=== PATIENT | male | born 1960 | race Caucasian/White ===

== ENCOUNTER 2018-01-29 12:57 | Inpatient (IN) ==
[2018-01-29 18:04] LABS: Amphetamine Screen,Urine Neg (Neg); Barbiturate Screen,Urine Neg (Neg); Cannabinoid Screen,Urine Neg (Neg); Cocaine Screen,Urine Neg (Neg)
[2018-01-29 18:13] LABS: Opiate Screen,Urine Neg (Neg)
[2018-01-29 18:15] LABS: Albumin 3.9 g/dL (3.4-5.0); Anion Gap 9 meq/L (5-15); Aspartate Aminotransferase 15 U/L (15-37); Blood Urea Nitrogen 13 mg/dL (7-18); Calcium 8.9 mg/dL (8.5-10.1); Carbon Dioxide 28.2 meq/L (21.0-32.0); Chloride 104 meq/L (98-107); Glomerular Filtration Rate 80 mL/min (>89); Glucose,Random 91 mg/dL (74-106); Potassium 3.9 meq/L (3.5-5.1); Sodium 141 meq/L (136-145)
[2018-01-29 18:16] LABS: Alanine Aminotransferase 22 U/L (12-78)
[2018-01-29 18:18] LABS: Baso # (Auto) 0.1 th/mm3 (0.0-0.2); Baso % (Auto) 0.6 % (0.0-2.0); Eos # (Auto) 0.1 th/mm3 (0.0-0.4); Eos % (Auto) 1.1 % (0.0-4.0); Hematocrit 41.5 % (39.0-51.0); Hemoglobin 14.5 gm/dL (13.0-17.0); Lymph % (Auto) 29.2 % (9.0-44.0); Mean Corpuscular HGB Conc 34.9 % (32.0-36.0); Mean Corpuscular Hemoglobin 29.9 pg (27.0-34.0); Mean Corpuscular Volume 85.7 fL (80.0-100.0); Mean Platelet Volume 8.5 fL (7.0-11.0); Mono # (Auto) 0.7 th/mm3 (0.0-0.9); Mono % (Auto) 6.8 % (0.0-8.0); Neut # (Auto) 6.4 th/mm3 (1.8-7.7); Neut % (Auto) 62.3 % (16.0-70.0); Platelet Count 301 th/mm3 (150-450); Red Blood Count 4.84 mil/mm3 (4.50-5.90); Red Cell Distribution Width 14.4 % (11.6-17.2); White Blood Count 10.2 th/mm3 (4.0-11.0)
--- NOTE | 2018-01-29 18:18 | ED ---
HPI General Chief Complaint: Psychiatric Symptoms Stated Complaint: Psych Screen Time Seen by Provider: 01/29/18 16:51 Source: patient Mode of arrival: ambulatory Limitations: other (possibly autistic) History of Present Illness HPI Narrative: Patient is a 57-year-old male presenting [facility] for [facility] evaluation. Patient states that his "mind is mixed up". He attributes this to withdrawing from Klonopin. He states that he has not had any for 3 weeks. He reports that he has trouble sleeping, this is also been ongoing for the last 3 weeks. He states that he has not used cocaine for the same amount of time but continues to have insomnia. He denies any suicidal homicidal ideations. He denies any hallucinations. Apparently patient's physician is attempting to wean him from the Klonopin. Patient has no other complaints at this time. Onset (ago): week(s) Duration: constant Related Data Allergies Allergy/AdvReac Type Severity Reaction Status Date / Time No Known Allergies Allergy Unverified 01/29/18 16:57 Review of Systems ROS: all other systems reviewed are negative PMFSH History History Provided By: Patient Medical History Medical History Autistic behavior (Chronic) Social History Social History Recent Travel in [facility] within the Last 8 Weeks: No Recent Out of Country Travel within the Last 8 Weeks: No Exam Narrative Exam Narrative: GENERAL: Overweight, well-developed, alert male. Presenting in no acute distress. SKIN: Focused skin assessment warm/dry. HEAD: Atraumatic. Normocephalic. EYES: Pupils equal and round. No scleral icterus. No injection or drainage. ENT: No nasal bleeding or discharge. Mucous membranes pink and moist. NECK: Trachea midline. No JVD. CARDIOVASCULAR: Regular rate and rhythm. No murmur appreciated. RESPIRATORY: No accessory muscle use. Clear to auscultation. Breath sounds equal bilaterally. GASTROINTESTINAL: Abdomen soft, non-tender, nondistended. Hepatic and splenic margins not palpable. MUSCULOSKELETAL: No obvious deformities. No clubbing. No cyanosis. No edema. NEUROLOGICAL: Awake and alert. No obvious cranial nerve deficits. Motor grossly within normal limits. Normal speech. PSYCHIATRIC: Appropriate mood and affect; insight and judgment normal. Course Initial Documented Vital Signs Temperature 98.6 F 01/29/18 13:04 Pulse Rate 85 01/29/18 13:04 Respiratory Rate 22 01/29/18 13:04 Blood Pressure 146/88 H 01/29/18 13:04 Pulse Oximetry 98 01/29/18 13:04 Last Documented Vital Signs Temperature 98.6 F 01/29/18 13:04 Pulse Rate 85 01/29/18 13:04 Respiratory Rate 22 01/29/18 13:04 Blood Pressure 146/88 H 01/29/18 13:04 Pulse Oximetry 98 01/29/18 13:04 Medical Decision Making MDM Narrative Medical decision making narrative: Patient is a well-appearing 57-year-old male presenting sent voluntarily for psychiatric evaluation. Vital signs are stable. Mental health screening discussed with the patient. Psychiatric screen ordered. It is unlikely patient's withdrawing from Klonopin, he has no physical symptoms other than insomnia. Labs reviewed, no acute findings identified. Patient is medically cleared for psychiatric evaluation at this time. Medical Screen Exam Complete: Yes Emergency Medical Condition: Yes Medical Records Medical records reviewed: Yes I reviewed the patient's medical records. Lab Data Lab results reviewed: Yes I reviewed the patient's lab results. Result diagrams: 01/29/18 17:20 01/29/18 17:20 Lab Results 01/29/18 01/29/18 01/29/18 Range/Units 16:30 17:20 17:20 WBC 10.2 (4.0-11.0) th/mm3 RBC 4.84 (4.50-5.90) mil/mm3 Hgb 14.5 (13.0-17.0) gm/dL Hct 41.5 (39.0-51.0) % MCV 85.7 (80.0-100.0) fL MCH 29.9 (27.0-34.0) pg MCHC 34.9 (32.0-36.0) % RDW 14.4 (11.6-17.2) % Plt Count 301 (150-450) th/mm3 MPV 8.5 (7.0-11.0) fL Neut % (Auto) 62.3 (16.0-70.0) % Lymph % (Auto) 29.2 (9.0-44.0) % [place] % (Auto) 6.8 (0.0-8.0) % Eos % (Auto) 1.1 (0.0-4.0) % Baso % (Auto) 0.6 (0.0-2.0) % Neut # (Auto) 6.4 (1.8-7.7) th/mm3 Lymph # (Auto) 3.0 (1.0-4.8) th/mm3 [place] # (Auto) 0.7 (0.0-0.9) th/mm3 Eos # (Auto) 0.1 (0.0-0.4) th/mm3 Baso # (Auto) 0.1 (0.0-0.2) th/mm3 WBC Differential . Differential Comment Auto diff final Sodium 141 (136-145) meq/L Potassium 3.9 (3.5-5.1) meq/L Chloride 104 (98-107) meq/L Carbon Dioxide 28.2 (21.0-32.0) meq/L Anion Gap 9 (5-15) meq/L BUN 13 (7-18) mg/dL Creatinine 0.96 (0.60-1.30) mg/dL Estimated GFR 80 L (>89) mL/min Random Glucose 91 (74-106) mg/dL Calcium 8.9 (8.5-10.1) mg/dL Total Bilirubin 0.4 (0.2-1.0) mg/dL AST 15 (15-37) U/L ALT 22 (12-78) U/L Alkaline Phosphatase 77 (45-117) U/L Total Protein 7.1 (6.4-8.2) g/dL Albumin 3.9 (3.4-5.0) g/dL TSH 2.890 (0.358-3.740) uIU/mL Urine Opiates Screen Neg (Neg) Ur Barbiturates Screen Neg (Neg) Ur Amphetamines Screen Neg (Neg) U Benzodiazepines Scrn Neg (Neg) Urine Cocaine Screen Neg (Neg) U Cannabinoids Screen Neg (Neg) Discharge Plan Discharge Disposition Patient Disposition: 30 Still Patient Discharge Condition Condition: Stable Discharge Details Diagnosis: Medical clearance for psychiatric admission Physicians Team ED Provider: Cristy Hill ED Midlevel Provider: Penelope Villeda Primary Care Provider: UNKNOWN, Discharge Interventions Interventions: Vital Signs Last Done: 01/29/18 13:04 Status ED Status: Medically Cleared
[2018-01-29 18:26] LABS: Alkaline Phosphatase 77 U/L (45-117); Total Protein 7.1 g/dL (6.4-8.2)
[2018-01-30] MEDS ORDERED: Aluminum/Magnesium/Simethacone Susp 30 ML UDC PO PRN (10:27)
[2018-01-30] MEDS ORDERED: Bisacodyl 10 MG Supp RECTAL PRN (10:27)
[2018-01-30] MEDS: amLODIPine 5 MG Tablet PO SCH (10:57)
--- NOTE | 2018-01-30 11:01 | ED ---
HPI - Psych - General Source: patient Mode of arrival: ambulatory Limitations: other (Cognitive delay) - History of Present Illness MD complaint: other (Insomnia and increased anxiety) Onset (ago): week(s) Duration: constant History of same: Yes Relieving factors: medication (Klonopin) Exacerbating factors: other (Being weaned off of the Klonopin) Context: not taking psychiatric medications Associated psychiatric symptoms: other (Increased anxiety) Associated symptoms: insomnia Treatments prior to arrival: none - General Chief Complaint: Psychiatric Symptoms Stated Complaint: Psych Screen Time Seen by Provider: 01/30/18 10:15 - History of Present Illness HPI Narrative: This is a 57-year-old single, male who presents to this facility voluntarily self reporting no sleep for several nights now. He is not previously known to the psychiatric department at this facility. Reviewed electronic medical record, labs, discussed case with staff. Patient's toxicology screen is negative. He is evaluated and J104. He is found awake, alert, and oriented 4. He is dressed in [facility] and neatly groomed. He denies feeling suicidal or homicidal as well as experiencing auditory or visual hallucinations. His speech while clear, logical, and organized is somewhat pressured and rapid. I can elicit no delusional material. There is no indication of internal stimulation or thought blocking. There is no indication of psychosis. He does seem somewhat hypomanic at this point. His mood and affect are congruently anxious. In interacting with this patient, he appears to have some cognitive deficit. He states that he is withdrawing due to having his Klonopin decreased by his psychiatrist. Reports that he started using cocaine several months ago but has been off of it for approximately a month now. He states, "I have an addictive personality". He reports that he has had problems with alcohol in the past but no longer drinks. States that he feels really "edgy". He claims that he has not slept for "weeks". He reports that he has a problem with anxiety. He was a cutter but has not cut for the last 7 years. His mother reportedly set him up in a trailer where he lives by himself. He receives an SSI check. States that he completed the ninth grade. He denies owning any firearms. He denies smoking cigarettes stating that he quit many years ago. He denies any previous suicide attempts. He denies any knowledge of familial suicide or mental illness. (Marcella Ashton) - Related Data Home Medications Medication Instructions Recorded Confirmed amlodipine 5 mg PO DAILY 01/29/18 01/29/18 losartan 50 mg PO DAILY 01/29/18 01/29/18 [id number] Label Instructions .ROUTE 01/29/18 01/29/18 [Vayarin] .COMPLEX Allergies Allergy/AdvReac Type Severity Reaction Status Date / Time No Known Allergies Allergy Unverified 01/29/18 16:57 Review of Systems All other systems reviewed negative except as [facility] - History History Provided By: Patient, Family Member - Medical History Medical History: Medical History (Last Reviewed 01/30/18 @ 10:54 by TIM Nick) Hypertension Autistic behavior - Tobacco History Second Hand Smoke Exposure: No Smoking Status: Former smoker - Alcohol History How Often Do You Have a Drink Containing Alcohol: Never - Substance Use History Substance History: Past History - Substance Use Type Crack/Cocaine Status: Early Remission Route Used: Inhalation Frequency: "occasional" Last Used: 3 weeks ago Reason for Use: Feels Good Amphetamines Status: Sustained Remission Last Used: 2016 Reason for Use: Get High Comment: Treated at rehab in [place] starting in 2016 - Travel History Recent Travel in the [facility] Within the Last 8 Weeks: No Recent Travel Out of the Country Within the Last 8 Weeks: No - Immunization History Tetanus Immunization: Unsure Psychiatric History - Psychiatric History Psychiatric Treatment History: History of Psychiatric Treatment History of Inpatient Treatment: Yes Firearms in Home: No - Psychiatric History Reportedly has been treated another states. Currently sees an outpatient provider who prescribes him Vayarin and is titrating him off of his Klonopin. (Marcella Ashton) - Family Psychiatric History Denies knowledge of (Marcella Ashton) Physical Exam - General Limitations: other (possibly autistic) General appearance: alert, anxious - Head Head exam: atraumatic - Neurological Exam Neurological exam: Present: alert, oriented X3 - Psychiatric Psychiatric exam: Present: anxious Mental Status Examination Appearance: Appropriate Consciousness: Alert, Vigilant Orientation: x4 Motor Activity: Normal gait Speech: Pressured, Rapid Language: Adequate Fund of Knowledge: Adequate Attention and Concentration: Easily distracted Memory: Unremarkable Mood: Anxious Affect: Anxious Thought Process & Associations: Linear Thought Content: Racing thoughts Hallucination Type: None Delusion Type: None Suicidal Ideation: No Suicidal Plan: No Suicidal Intention: No Homicidal Ideation: No Homicidal Plan: No Homicidal Intention: No Insight: Poor Judgment: Impulsive Initial Documented Vital Signs Temperature 98.6 F 01/29/18 13:04 Pulse Rate 85 01/29/18 13:04 Respiratory Rate 22 01/29/18 13:04 Blood Pressure 146/88 H 01/29/18 13:04 Pulse Oximetry 98 01/29/18 13:04 Last Documented Vital Signs Temperature 98.8 F 01/30/18 10:16 Pulse Rate 78 01/30/18 10:16 Respiratory Rate 20 01/30/18 10:16 Blood Pressure 159/97 H 01/30/18 10:16 Pulse Oximetry 99 01/30/18 10:16 MDM - Psych - Diagnosis (1) Anxiety Status: Acute - Lab Data Result diagrams: 01/29/18 17:20 01/29/18 17:20 - MDM Narrative Medical decision making narrative: Although the patient is denying being suicidal or homicidal he does appear to be hypomanic. He claims to be withdrawing from Klonopin which is mother corroborates that he is being weaned off of it. Mother and patient both report that he has not been sleeping and his mood and affect are beginning to reflect it. It is likely that without inpatient admission and sleep, he will continue to destabilize and could pose a danger to himself. Therefore, I am admitting him to a locked inpatient psychiatric unit for evaluation and treatment as deemed necessary. He has signed the voluntary paperwork for admission. (Marcella Ashton) - Lab Data Lab Results 01/29/18 01/29/18 01/29/18 Range/Units 16:30 17:20 17:20 WBC 10.2 (4.0-11.0) th/mm3 RBC 4.84 (4.50-5.90) mil/mm3 Hgb 14.5 (13.0-17.0) gm/dL Hct 41.5 (39.0-51.0) % MCV 85.7 (80.0-100.0) fL MCH 29.9 (27.0-34.0) pg MCHC 34.9 (32.0-36.0) % RDW 14.4 (11.6-17.2) % Plt Count 301 (150-450) th/mm3 MPV 8.5 (7.0-11.0) fL Neut % (Auto) 62.3 (16.0-70.0) % Lymph % (Auto) 29.2 (9.0-44.0) % [place] % (Auto) 6.8 (0.0-8.0) % Eos % (Auto) 1.1 (0.0-4.0) % Baso % (Auto) 0.6 (0.0-2.0) % Neut # (Auto) 6.4 (1.8-7.7) th/mm3 Lymph # (Auto) 3.0 (1.0-4.8) th/mm3 [place] # (Auto) 0.7 (0.0-0.9) th/mm3 Eos # (Auto) 0.1 (0.0-0.4) th/mm3 Baso # (Auto) 0.1 (0.0-0.2) th/mm3 WBC Differential . Differential Comment Auto diff final Sodium 141 (136-145) meq/L Potassium 3.9 (3.5-5.1) meq/L Chloride 104 (98-107) meq/L Carbon Dioxide 28.2 (21.0-32.0) meq/L Anion Gap 9 (5-15) meq/L BUN 13 (7-18) mg/dL Creatinine 0.96 (0.60-1.30) mg/dL Estimated GFR 80 L (>89) mL/min Random Glucose 91 (74-106) mg/dL Calcium 8.9 (8.5-10.1) mg/dL Total Bilirubin 0.4 (0.2-1.0) mg/dL AST 15 (15-37) U/L ALT 22 (12-78) U/L Alkaline Phosphatase 77 (45-117) U/L Total Protein 7.1 (6.4-8.2) g/dL Albumin 3.9 (3.4-5.0) g/dL TSH 2.890 (0.358-3.740) uIU/mL Urine Opiates Screen Neg (Neg) Ur Barbiturates Screen Neg (Neg) Ur Amphetamines Screen Neg (Neg) U Benzodiazepines Scrn Neg (Neg) Urine Cocaine Screen Neg (Neg) U Cannabinoids Screen Neg (Neg) Serum Alcohol Less than 3 (0-5) mg/dL
[2018-01-30] MEDS: Senna/Docusate Sodium 8.6/50 MG Tablet PO SCH (21:22)
[2018-01-31] MEDS: amLODIPine 5 MG Tablet PO SCH (08:40)
[2018-01-31] MEDS: Acetaminophen 325 MG Tablet PO PRN ×2 (08:46→18:23)
[2018-01-31 08:54] LABS: Anion Gap 7 meq/L (5-15); Blood Urea Nitrogen 13 mg/dL (7-18); Calcium 9.1 mg/dL (8.5-10.1); Carbon Dioxide 28.7 meq/L (21.0-32.0); Chloride 102 meq/L (98-107); Glomerular Filtration Rate Greater Than 89 mL/min (>89); Glucose,Random 91 mg/dL (74-106); Potassium 3.9 meq/L (3.5-5.1); Sodium 138 meq/L (136-145)
[2018-01-31] MEDS: Senna/Docusate Sodium 8.6/50 MG Tablet PO SCH ×2 (08:54→21:40)
[2018-01-31 08:56] LABS: Cholesterol 165 mg/dL (120-200)
[2018-01-31 08:58] LABS: Chol/HDL Ratio 4.52 Ratio; HDL Cholesterol 36.5 mg/dL (40.0-60.0); LDL Cholesterol,Calculated 89 mg/dL (0-99); Triglycerides 198 mg/dL (42-150)
--- NOTE | 2018-01-31 11:26 | P.DIET ---
Nutritional Evaluation Type of nutrition evaluation: initial Nutrition screening: Weight Loss > 10 lbs Subjective Subjective Comments: Pt reports a 15-lb wt loss over the last 3-weeks and he says this is due to him having withdrawals from Klonopin. Pt adds "I still eat", "but I dont have an appetite". Pt receptive to receiving Ensure w/meals. Objective - Diagnosis Nancy - Objective [place] body weight: 78.2 kg % IBW: 116 Body Weight Used for Calculations: Actual (90.4 kg) Energy Needs - Lower Range (kCal/kg): 22 Energy Needs - Upper Range (kCal/kg): 27 Lower Limit kCal/kg (kCals): 1,989 Upper Limit kCal/kg (kCals): 2,441 Lower Limit Protein Factor (Grams per Kg): 1.0 Upper Limit Protein Factor (Grams per Kg): 1.3 Lower Protein Needs (Protein): 90 Upper Protein Needs (Protein): 118 Dietitian Reviewed in Medical Record: Current diet, Curent medications, Intake & Output, Labs, Medical history Diet Order: Regular Oral Diet Intake Amount: Good 75-90% Objective Comments: PMH Includes: Autistic Behavior, HTN A1C pending, TG 198 Assessment Assessment: Pt is at nutritional risk r/t recent reported unintentional wt loss. Adequate po intake 50% or greater for meals here. Send Ensure w/meals for additional nutrition(= 250 kcal and 9g protein per serving). Labs reviewed. Dietitian will follow. Recommendations: 1. Send Ensure w/meals for additional nutrition 2. Dietitian will follow Dietitian to Monitor: Lab values, Supplement acceptance, Intake & Output, Diet tolerance, Weight change, PO Intake
[2018-01-31 16:04] LABS: Hemoglobin A1c 5.9 % (4.3-6.0)
--- NOTE | 2018-01-31 16:45 | P.HPPSY ---
Provisional Diagnosis Admission Date: January 30, 2018 10:24 [place].: Bipolar disorder Competence Certification of Person's Competence To Provide Express and Informed Consent I have personally examined Adrian Hernandez, a person being served at [facility] on, January 31, 2018 1644. Express and informed consent means consent voluntarily given in writing, by a competent person, after sufficient explanation and disclosure of the subject matter involved to enable the person to make a knowing and willful decision without any element of force, fraud, deceit, duress, or other form of constraint or coercion. This person is 18 years of age or older, is not now known to be incompetent to consent to treatment with a guardian advocate, and does not have a health care surrogate or proxy currently making medical treatment decisions. I have found this person to be one of the following: [xxx] Competent to provide express and informed consent, as defined above, for voluntary admission to this facility and is competent to provide express and informed consent for treatment. He/she has the consistent capacity to make well reasoned, willful, and knowing decisions concerning his or her medical or mental health treatment. The person fully and consistently understands the purpose of the admission for examination/placement and is fully capable of personally exercising all rights assured [place] Incompetent to provide express and informed consent to voluntary admission, and this is incompetent to provide express and informed consent to treatment. The person must be transferred to involuntary status and a petition for a guardian advocate filed with the Circuit Court. [] Refusing to provide express and informed consent to voluntary admission but is competent to provide express and informed consent for treatment. The person must be discharged or transferred to involuntary status. Form shall be completed within 24 hours of a person's arrival at the receiving facility and filed in the clinical record of each person: 1. Admitted on a voluntary basis 2. Permitted to provide express and informed consent to his/her own treatment 3. Allowed to transfer from involuntary to voluntary status 4. Prior to permitting a person to consent to his or her own treatment after having been previously found incompetent to consent to treatment. History of Present Illness Capacity: Has capacity History of Present Illness: Patient is a 57-year-old man, single, domiciled alone, unemployed on SSI, with a past psychiatric history of bipolar disorder, anxiety disorder, polysubstance use disorder, with no previous psychiatric admissions, no previous suicide attempts, remote history of self-injurious behavior via cutting , with a substance use history significant for crack cocaine use, methamphetamine use in remission, with a past medical history significant for osteoarthritis, hypertension, who presented to the ED on voluntary basis accompanied by mother due to reporting difficulty with sleep along with claiming withdrawing from clonazepam which patient was admitted and voluntary admission for further psychiatric evaluation and management. Patient was found lying hospital bed noted B, cooperative. Patient reports that his "mind is mixed up" stating that he believes he may be withdrawn Klonopin although patient last use was 0.3 weeks ago. Patient reports having had difficulty sleep recently and although has history of cocaine use reports not having used for several weeks. Patient denies any perceptional disturbances denies any SI or HI. Patient reports that he has not slept for weeks and usually at the most 1 hour per night and states that he has not had these episodes in the past. Patient reports her mood as being "okay" feeling "very depressed" but also reporting decreased appetite, energy and concentration, denying any racing thoughts but noted to be somewhat tangential, with some pressured speech during interview. Patient did report having irritability, having episodes of "super high energy" but denying feeling hopeless but somewhat helpless at times. Patient denied any risky behavior, denied any ideas of reference, no grandiose delusions at this time. Patient denies any perceptional services or delusions at this time. Patient states that he primarily came to the hospital for suspicion of current symptomatology due to withdrawal but was reporting feeling confused and tired. Patient agrees to continue voluntary admission to start medication for mood stabilization. Family psychiatric history: Patient reports mental illness in his mother's side but unspecified, denies any suicides in the family Past psychiatric history: Previous psychiatric diagnosis of bipolar disorder, anxiety disorder, polysubstance use disorder, denies previous psychiatric admissions, denies any previous suicide attempt but has remote cutting behavior 7 years ago, has outpatient mental health provider, Dr. Maldonado which he last saw last month. He reports having been on Vraylar 1.5mg for 1-1/2 months. Patient denies any history of abuse Substance use history: Patient reports crack cocaine use every other week last time being 3 weeks ago, patient reports remote use of methamphetamine use, stating having had remission for over a year now. Patient denies use of any other drugs. Patient reports previous rehabilitation program in 2017. Past medical history: Awake, HTN Allergies: NKDA Social history: Single, domiciled alone, unemployed on SSI, highest education is ninth grade, no access to firearms. - Inpatient Certification I certify that the inpatient services were ordered in accordance with Medicare regulations governing the order. This includes certification that hospital inpatient services are reasonable and necessary and in the case of services not specified as inpatient-only under 42 CFR 419.22(n), that they are appropriately provided as inpatient services in accordance to with the 2-midnight benchmark under 43 CFR 412.3(e) I certify that inpatient psychiatric hospital services are medically necessary. Evaluation and treatment and/or diagnostic testing are expected to improve the patient's condition. The patient needs on a daily basis, active treatment furnished directly by or requiring the supervision of inpatient psychiatric facility personnel. Estimated Total Length of Stay (Days): 7 Plans for Post Hospital Care: Home Review of Systems All other systems reviewed negative except as stated in HPI PMFSH - History History Provided By: Patient, Medical Record - Medical History Medical History: Medical History (Last Reviewed 01/30/18 @ 10:54 by TIM Nick) Hypertension Autistic behavior - Tobacco History Second Hand Smoke Exposure: No Tobacco Use In Past 30 Days: No Smoking Status: Former smoker Tobacco Type: Cigarettes - Alcohol History How Often Do You Have a Drink Containing Alcohol: Never - Substance Use History Substance History: Active Abuse - Substance Use Type Crack/Cocaine Status: Active Route Used: Inhalation Frequency: S20.00, twice a week Last Used: 3 weeks ago Reason for Use: Get High Amphetamines Status: Sustained Remission Route Used: Inhalation Last Used: 2017 Reason for Use: Get High Comment: See previous biopsychosocial for substance abuse history/use. - Travel History Recent Travel in the [place] Within the Last 8 Weeks: No Recent Travel Out of the Country Within the Last 8 Weeks: No - Immunization History Tetanus Immunization: <5 Years Hx Influenza Vaccine This Season: No Quality Measures - Psychiatric History Psychological trauma history: Denies Violence risk to others in the last 6 months: Low Violence risk to self in the last 6 months: Low - Substance Abuse History Drug or alcohol use in the past 12 months: See HPI - Patient Strengths Patient's strengths (minimum of 2): Verbal and communicative Medications and Allergies Active Medications: Active Medications Acetaminophen (Tylenol) 650 mg PO Q4H PRN PRN Reason: Pain 1-5 or Temp >101F Last Admin: 01/31/18 08:46 Dose: 650 mg Al Hydrox/Mg Hydrox/Simethicone (Mag-Al Plus Susp Liq) 30 ml PO Q6H PRN PRN Reason: DYSPEPSIA Al Hydroxide/Mg Hydroxide (Milk Of Magnesia Liq) 30 ml PO Q12H PRN PRN Reason: Mild Constipation Last Admin: 01/31/18 08:46 Dose: 30 ml Amlodipine Besylate (Norvasc) 5 mg PO DAILY [facility] Last Admin: 01/31/18 08:40 Dose: 5 mg Bisacodyl (Dulcolax Supp) 10 mg RECTAL DAILY PRN PRN Reason: SEVERE CONSITIPATION Diphenhydramine HCl (Benadryl) 50 mg PO Q6H PRN PRN Reason: For mild anxiety and/or EPS Last Admin: 01/30/18 21:21 Dose: 50 mg Hydroxyzine HCl (Atarax) 50 mg PO Q6H PRN PRN Reason: ANXIETY Lactulose (Lactulose Liq) 30 ml PO DAILY PRN PRN Reason: SEVERE CONSITIPATION Losartan Potassium (Cozaar) 50 mg PO DAILY [facility] Last Admin: 01/31/18 08:40 Dose: 50 mg Quetiapine Fumarate (Seroquel) 50 mg PO BID [facility] Senna/Docusate Sodium (Mellissa-Colace) 1 tab PO BID [facility] Last Admin: 01/31/18 08:54 Dose: Not Given Sennosides (Senokot) 17.2 mg PO Q12H PRN PRN Reason: Moderate Constipation Allergies Allergy/AdvReac Type Severity Reaction Status Date / Time No Known Allergies Allergy Unverified 01/29/18 16:57 Home Medications Medication Instructions Recorded Confirmed Type amlodipine 5 mg PO DAILY 01/29/18 01/29/18 History losartan 50 mg PO DAILY 01/29/18 01/29/18 History [id number] See Label Instructions .ROUTE 01/29/18 01/29/18 History [Vayarin] .COMPLEX Results - Labs CBC & Chem 7: 01/29/18 17:20 01/31/18 07:40 Labs: Laboratory Results - last 24 hr 01/31/18 07:40 Sodium 138 Potassium 3.9 Chloride 102 Carbon Dioxide 28.7 Anion Gap 7 BUN 13 Creatinine 0.77 Estimated GFR Greater than 89 Random Glucose 91 Calcium 9.1 Triglycerides 198 H Cholesterol 165 LDL Cholesterol, Calc 89 HDL Cholesterol 36.5 L Cholesterol/HDL Ratio 4.52 Exam Vital signs: Vital Signs 01/31/18 04:46 Temperature 97.8 F Pulse Rate 71 Respiratory Rate 17 Blood Pressure 149/84 H Intake & Output 01/30/18 01/31/18 01/31/18 18:59 06:59 18:59 Intake Total 360 / 360 Balance 360 / 360 Weight 90.4 kg 91 kg Intake: Oral 360 / 360 Other: Date of Last Bowel Movement 01/29/18 Weight On Admission 90.4 kg Narrative: Patient not noted to be in acute distress, no gross motor of maladies, signs of tremor or EPS, no psychomotor agitation or retardation. - Constitutional no acute distress, cooperative Mental Status Examination Appearance: Appropriate Consciousness: Alert, Vigilant Orientation: x4 Motor Activity: Normal gait Speech: Pressured, Rapid Language: Adequate Fund of Knowledge: Adequate Attention and Concentration: Easily distracted Memory: Unremarkable Mood: Anxious Affect: Anxious Thought Process & Associations: Linear Thought Content: Racing thoughts Hallucination Type: None Delusion Type: None Suicidal Ideation: No Suicidal Plan: No Suicidal Intention: No Homicidal Ideation: No Homicidal Plan: No Homicidal Intention: No Insight: Poor Judgment: Impulsive Assessment and Plan - Assessment (1) Bipolar disorder Code(s): F31.9 - Bipolar disorder, unspecified Status: Acute - Plan Plan: Estimated LOS: [] days Patient is a 57-year-old man, domiciled alone, on SSI, with a past psychiatric history of bipolar disorder, anxiety disorder, polysubstance use disorder, denies previous psychiatric admissions, no previous suicide attempts, with a substance use history significant for crack cocaine use, remote methamphetamine use, with a past medical history significant for hypertension, osteoarthritis who was brought in voluntarily accompanied by his mother reporting difficulty with sleep, believing he is withdrawing from clonazepam which patient was admitted to the inpatient psychiatry unit for further evaluation and management. Patient endorsing depressive and hypomanic symptoms and therefore we will start quetiapine 50 mg p.o. twice daily with upper titration for mood stabilization. Patient will be admitted under voluntary admission, has capacity to consent for treatment. We will continue to monitor mood and behavior. Discharge planning in progress. Justification for Continued Inpatient Stay: At risk for further decompensation at lower level of care. (1) Bipolar disorder Qualifiers: Most recent bipolar episode type: mixed
[2018-01-31] MEDS: QUEtiapine 25 MG Tablet PO SCH (20:53)
[2018-01-31] MEDS ORDERED: QUEtiapine 25 MG Tablet PO SCH (21:00)
--- NOTE | 2018-01-31 23:28 | ECG ---
Date Performed: 01/31/2018 Time Performed: 10:44:54 PTAGE: 57 years EKG: Sinus rhythm NORMAL ECG NO PREVIOUS TRACING DOCTOR: Vladislav Sanchez Interpretating Date/Time 01/31/2018 23:26:48
[2018-02-01] MEDS: QUEtiapine 25 MG Tablet PO SCH (08:35)
[2018-02-01] MEDS: amLODIPine 5 MG Tablet PO SCH (08:35)
[2018-02-01] MEDS: Senna/Docusate Sodium 8.6/50 MG Tablet PO SCH ×2 (08:35→20:27)
[2018-02-01] MEDS: Acetaminophen 325 MG Tablet PO PRN (13:40)
--- NOTE | 2018-02-01 16:22 | P.PNPSY ---
Subjective Remarks: Patient seen for follow, chart reviewed. Discussion nursing staff reported the patient interested in going to rehabilitation program for substance use, CIWA score have been negative. Patient was found lying hospital bed stating that he is having chronic back pain that he usually takes ibuprofen which helps at home. Patient states that he feels the medications have been helping, but slept well last night. He is noted to continue with some disorganization, easily distracted during interview, noted with continued pressured speech. He reports feeling depressed due to his chronic pain and could not recall any other factor contributing to his depression but later states feeling depressed due to "what brought me in here". He denies any perceptual disturbances or delusions at this time. Review of Systems All other systems reviewed negative except as stated in HPI Mental Status Examination Appearance: Appropriate Consciousness: Alert, Vigilant Orientation: x4 Motor Activity: Normal gait Speech: Pressured Language: Adequate Fund of Knowledge: Adequate Attention and Concentration: Easily distracted Memory: Unremarkable Mood: Anxious Affect: Anxious Thought Process & Associations: Loose associations, Linear Thought Content: Racing thoughts Hallucination Type: None Delusion Type: None Suicidal Ideation: No Suicidal Plan: No Suicidal Intention: No Homicidal Ideation: No Homicidal Plan: No Homicidal Intention: No Insight: Poor Judgment: Impulsive Assessment and Plan - Assessment (1) Bipolar disorder Code(s): F31.9 - Bipolar disorder, unspecified Status: Acute - Plan Plan: Patient continues with pressured speech, loosening of association, slight disorganization. Will continue to titrate quetiapine to 100mg PO BID for mood stabilization. Will discontinue acetaminophen and start ibuprofen for pain. Patient interested in engaging in substance use program. Monitor mood and behavior. Discharge planning in progress. Justification for Continued Inpatient Stay: At risk of further decompensation at lower level of care. (1) Bipolar disorder Qualifiers: Most recent bipolar episode type: mixed
[2018-02-01] MEDS: Ibuprofen 600 MG Tablet PO PRN (17:05)
[2018-02-01] MEDS: QUEtiapine 100 MG Tablet PO SCH (20:27)
[2018-02-02] MEDS: QUEtiapine 100 MG Tablet PO SCH ×2 (09:42→20:09)
[2018-02-02] MEDS: Senna/Docusate Sodium 8.6/50 MG Tablet PO SCH ×2 (09:43→20:09)
[2018-02-02] MEDS: amLODIPine 5 MG Tablet PO SCH (09:44)
--- NOTE | 2018-02-02 15:22 | P.PNPSY ---
Subjective Remarks: Reviewed electronic medical records and discussed case with staff. Follow-up was conducted in the exam room with LUPILLO Jeter present. Patient reports that he slept a little better last night. He states that his appetite's been good and he feels that the Seroquel is definitely helping him. He denies any side effects from the medication. Mental Status Examination Appearance: Appropriate Consciousness: Alert, Vigilant Orientation: x4 Motor Activity: Normal gait Speech: Pressured Language: Adequate Fund of Knowledge: Adequate Attention and Concentration: Easily distracted Memory: Unremarkable Mood: Anxious Affect: Anxious Thought Process & Associations: Loose associations, Linear Thought Content: Racing thoughts Hallucination Type: None Delusion Type: None Suicidal Ideation: No Suicidal Plan: No Suicidal Intention: No Homicidal Ideation: No Homicidal Plan: No Homicidal Intention: No Insight: Poor Judgment: Impulsive Assessment and Plan - Assessment (1) Anxiety Code(s): F41.9 - Anxiety disorder, unspecified Status: Acute - Plan Plan: Patient will be reevaluated Sunday by the attending psychiatrist. Continue with current treatment plan. Justification for Continued Inpatient Stay: Moving this patient to a less restrictive environment would likely result in decompensation.
[2018-02-03] MEDS: QUEtiapine 100 MG Tablet PO SCH ×2 (09:15→20:22)
[2018-02-03] MEDS: Senna/Docusate Sodium 8.6/50 MG Tablet PO SCH ×2 (09:16→20:22)
[2018-02-03] MEDS: amLODIPine 5 MG Tablet PO SCH (09:17)
[2018-02-03] MEDS: Ibuprofen 600 MG Tablet PO PRN ×2 (09:21→17:25)
--- NOTE | 2018-02-03 13:21 | P.PNPSY ---
Subjective Chief Complaint: Anxiety Remarks: Reviewed electronic medical records and discussed case with staff. Follow-up was conducted in the patient's room with LUPILLO Jeter present. Patient states that his mother visited yesterday and she is a trigger that increases his anxiety. States he cannot stop thinking about the interaction with his mother. He acknowledges that he has problems with anger management. He is sleeping and eating well. Complaining about a crack related to dryness in his feet. Encouraged him to continue to apply lotion. Review of Systems All other systems reviewed negative except as stated in HPI Mental Status Examination Appearance: Appropriate Consciousness: Alert, Vigilant Orientation: x4 Motor Activity: Normal gait Speech: Pressured Language: Adequate Fund of Knowledge: Adequate Attention and Concentration: Easily distracted Memory: Unremarkable Mood: Anxious Affect: Anxious Thought Process & Associations: Loose associations, Linear Thought Content: Racing thoughts Hallucination Type: None Delusion Type: None Suicidal Ideation: No Suicidal Plan: No Suicidal Intention: No Homicidal Ideation: No Homicidal Plan: No Homicidal Intention: No Insight: Poor Judgment: Impulsive Assessment and Plan - Assessment (1) Anxiety Code(s): F41.9 - Anxiety disorder, unspecified Status: Acute - Plan Plan: Patient will be reevaluated Sunday by the attending psychiatrist. Continue with current treatment plan. Justification for Continued Inpatient Stay: Moving patient to a less restrictive environment may result in his decompensation.
[2018-02-04] MEDS: QUEtiapine 100 MG Tablet PO SCH (09:16)
[2018-02-04] MEDS: Ibuprofen 600 MG Tablet PO PRN ×2 (09:16→17:34)
[2018-02-04] MEDS: amLODIPine 5 MG Tablet PO SCH (09:16)
[2018-02-04] MEDS: Senna/Docusate Sodium 8.6/50 MG Tablet PO SCH (09:16)
[2018-02-04] MEDS ORDERED: QUEtiapine 100 MG Tablet PO SCH (21:00)
--- NOTE | 2018-02-04 21:09 | P.DSPSY ---
Psychiatry Discharge Summary Inpatient Psychiatric care?: Yes Advance Directives: No Mental Health Advance Directive: No Health Care Proxy: No - Admission Admission Date: January 30, 2018 10:24 - Admission Diagnosis (1) Bipolar disorder Code(s): F31.9 - Bipolar disorder, unspecified Brief History: Patient is a 57-year-old man, single, domiciled alone, unemployed on [employer], with a past psychiatric history of bipolar disorder, anxiety disorder, polysubstance use disorder, with no previous psychiatric admissions, no previous suicide attempts, remote history of self-injurious behavior via cutting , with a substance use history significant for crack cocaine use, methamphetamine use in remission, with a past medical history significant for osteoarthritis, hypertension, who presented to the ED on voluntary basis accompanied by mother due to reporting difficulty with sleep along with claiming withdrawing from clonazepam which patient was admitted and voluntary admission for further psychiatric evaluation and management. Patient was found lying hospital bed noted B, cooperative. Patient reports that his "mind is mixed up" stating that he believes he may be withdrawn Klonopin although patient last use was 0.3 weeks ago. Patient reports having had difficulty sleep recently and although has history of cocaine use reports not having used for several weeks. Patient denies any perceptional disturbances denies any SI or HI. Patient reports that he has not slept for weeks and usually at the most 1 hour per night and states that he has not had these episodes in the past. Patient reports her mood as being "okay" feeling "very depressed" but also reporting decreased appetite, energy and concentration, denying any racing thoughts but noted to be somewhat tangential, with some pressured speech during interview. Patient did report having irritability, having episodes of "super high energy" but denying feeling hopeless but somewhat helpless at times. Patient denied any risky behavior, denied any ideas of reference, no grandiose delusions at this time. Patient denies any perceptional services or delusions at this time. Patient states that he primarily came to the hospital for suspicion of current symptomatology due to withdrawal but was reporting feeling confused and tired. Patient agrees to continue voluntary admission to start medication for mood stabilization. Family psychiatric history: Patient reports mental illness in his mother's side but unspecified, denies any suicides in the family Past psychiatric history: Previous psychiatric diagnosis of bipolar disorder, anxiety disorder, polysubstance use disorder, denies previous psychiatric admissions, denies any previous suicide attempt but has remote cutting behavior 7 years ago, has outpatient mental health provider, Dr. Maldonado which he last saw last month. He reports having been on Vraylar 1.5mg for 1-1/2 months. Patient denies any history of abuse Substance use history: Patient reports crack cocaine use every other week last time being 3 weeks ago, patient reports remote use of methamphetamine use, stating having had remission for over a year now. Patient denies use of any other drugs. Patient reports previous rehabilitation program in 2017. Past medical history: Awake, HTN Allergies: NKDA Social history: Single, domiciled alone, unemployed on [employer], highest education is ninth grade, no access to firearms. Tobacco Use In Past 30 Days: No How Often Do You Have a Drink Containing Alcohol: Never Hospital Course: Patient is a 57-year-old man, single, domiciled alone, unemployed on [employer], with a past psychiatric history of bipolar disorder, anxiety disorder, polysubstance use disorder, with no previous psychiatric admissions, no previous suicide attempts, remote history of self-injurious behavior via cutting , with a substance use history significant for crack cocaine use, methamphetamine use in remission, with a past medical history significant for osteoarthritis, hypertension, who presented to the ED on voluntary basis accompanied by mother due to reporting difficulty with sleep along with claiming withdrawing from clonazepam which patient was admitted and voluntary admission for further psychiatric evaluation and management. Patient started on quetiapine and titrated to 100mg PO BID, continued on medications for chronic medical illnesses. Patient was noted initially to report feeling depressed and anxious but with treatment was found to be future oriented, hopeful and motivated to engage in sober living facility to engage in rehabilitation for substance use. Patient was noted to not have depressed affect nor reporting depressed mood and observed by staff to not have had any behavioral disturbances, not having made any suicidal or homicidal statements and maintained stable mood throughout admission and was noted to participate with staff adequately. Patient was noted to participate in self care, engaging with staff and maintaining adequate hygiene. Patient reported feeling hopeful, future oriented and motivated to engage in treatment his mental health along for substance abuse. Treatment team was able to set up referral to sober living facility and outpatient follow up appointments. Upon discharge patient stated feeling good, reported feeling well and motivated to continue recommendations. He denied any SI, HI, perceptual disturbances or delusions. Weighing the acute, chronic, and protective factors and based on the available evidence, I reel hooker to a reasonable degree of medical certainty that the patient is at low imminent risk of harm to self or others from a mental illness as defined under the [place] act and his level of function is adequate as observed on the unit for planned level of outpatient care. Patient was counseled regarding warning signs for need to return to the psychiatric emergency room as part of a general safety plan. Patient advised to call 911 or go nearest ED in case of emergency. Patient agreed with plan. - Discharge Discharge Date: 02/04/18 - Discharge Diagnosis (1) Bipolar disorder Code(s): F31.9 - Bipolar disorder, unspecified Status: Acute Discharge Disposition: Home - Discharge Instructions Discharge Diet: Heart Healthy Diet Activities You Can Perform: Regular- No Restrictions - Discharge Time > 30 minutes Mental Status Examination Appearance: Appropriate Consciousness: Alert, Vigilant Orientation: x4 Motor Activity: Normal gait Speech: Pressured Language: Adequate Fund of Knowledge: Adequate Attention and Concentration: Easily distracted Memory: Unremarkable Mood: Appropriate Affect: Appropriate Thought Process & Associations: Logical, Goal directed, Linear Thought Content: Appropriate Hallucination Type: None Delusion Type: None Suicidal Ideation: No Suicidal Plan: No Suicidal Intention: No Homicidal Ideation: No Homicidal Plan: No Homicidal Intention: No Insight: Fair Judgment: Impulsive Discharge/Advance Care Plan - Results Vital Signs: Last Vital Signs Temp 98.4 F 02/04/18 06:08 Pulse 84 02/04/18 06:08 Resp 16 02/04/18 06:08 BP 142/79 H 02/04/18 06:08 Pulse Ox 95 02/04/18 06:08 Lab Results: Laboratory Results Hemoglobin A1c 5.9 % (4.3-6.0) 01/31/18 07:40 Triglycerides 198 mg/dL (42-150) H 01/31/18 07:40 Cholesterol 165 mg/dL (120-200) 01/31/18 07:40 LDL Cholesterol, Calc 89 mg/dL (0-99) 01/31/18 07:40 HDL Cholesterol 36.5 mg/dL (40.0-60.0) L 01/31/18 07:40 TSH 2.890 uIU/mL (0.358-3.740) 01/29/18 17:20 Summary of Procedures: none Pending Results: None - Medications Number of antipsychotic medications at discharge: 1 - Discharge Care Plan Goals to Promote Your Health: * To prevent worsening of your condition and complications * To maintain your health at the optimal level Directions to Meet Your Goals: Take your medications as prescribed Follow your dietary instruction Follow activity as directed Keep your appointments as scheduled Take your immunizations and boosters as scheduled If your symptoms worsen call your PCP, if no PCP go to Urgent Care Center or Emergency Room For 18/12 questions related to your inpatient stay or results of tests pending at discharge, please contact Dr. Luca Jones MD at Smoking is Dangerous to Your Health. Avoid second hand smoking (1) Bipolar disorder Qualifiers: Most recent bipolar episode type: mixed (1) Bipolar disorder Qualifiers: Most recent bipolar episode type: mixed
[2018-02-05] MEDS ORDERED: QUEtiapine 100 MG Tablet PO SCH (09:00)
== END 2018-02-04 18:35 ==
LOC: NEPJ 12:57 → NEDA 01-30 10:24 → H260 01-30 11:38
PROVIDERS: ADMIT Student in an Organized Health Care Education/Training Program; ATTEND Student in an Organized Health Care Education/Training Program